=== PATIENT | female | born 1940 | race Two or more races ===

== ENCOUNTER 2025-02-10 18:21 | Emergency (ER) | payer OTHER ==
[~2025-02-10] VITALS: Ht 157.5 cm; Wt 59.0 kg
[2025-02-10] MEDS ORDERED: ARICEPT5 MG (18:36)
[2025-02-10] MEDS ORDERED: HYZAAR 50-12.51 EACH (18:36)
[2025-02-10] MEDS ORDERED: NAMENDA1 EACH (18:36)
[2025-02-10] MEDS ORDERED: ASPIRIN 81 MG TABLET.EC PO STA (18:56)
[2025-02-10 19:05] VITALS: BP 136/72; O2SAT 98
== END 2025-02-10 19:06 | disposition home or self-care (01) ==
LOC: ER 18:32
DX: R20.2 Paresthesia of skin (principal)